=== PATIENT | male | born 1985 | race Caucasian/White ===

== ENCOUNTER 2016-11-01 11:26 | Emergency (ER) | payer OTHER ==
[~2016-11-01] VITALS: Ht 182.9 cm; Wt 86.2 kg
[~2016-11-01 11:26] MED LIST: Ambien PO; CLARITIN-D 121 EACH PO; ENDOCET 5-3251 EACH PO; IBUPROFEN800 MG PO; LEXAPRO10 MG PO; Levaquin PO; ROBITUSSIN AC,T10 ML PO; ZITHROMAX Z-PA250 MG PO; celeXA PO
[2016-11-01] MEDS ORDERED: LISINOPRIL20 MG PO (11:43)
[2016-11-01] MEDS ORDERED: GRALISE300 MG PO (11:43)
[2016-11-01] MEDS ORDERED: WELLBUTRIN75 MG PO (11:43)
[2016-11-01] MEDS ORDERED: MOTRIN800 MG PO (12:18)
[2016-11-01 12:34] VITALS: BP 115/75
== END 2016-11-01 12:35 | disposition home or self-care (01) ==
LOC: EME 11:26
DX: S60.221A Contusion of right hand, initial encounter (principal); W10.9XXA Fall (on) (from) unspecified stairs and steps, initial encounter; I10 Essential (primary) hypertension; F17.200 Nicotine dependence, unspecified, uncomplicated
CPT/HCPCS: 73130; 99281; 99283

== ENCOUNTER 2017-05-07 19:11 | Emergency (ER) | payer OTHER ==
[~2017-05-07] VITALS: Ht 182.9 cm; Wt 79.5 kg
[~2017-05-07 19:11] MED LIST changes: +GRALISE300 MG PO; +LISINOPRIL20 MG PO; +MOTRIN800 MG PO; +WELLBUTRIN75 MG PO
[2017-05-07] MEDS ORDERED: MEDROL DOSEPAK4 MG PO (22:46)
[2017-05-07 23:11] VITALS: BP 123/80
== END 2017-05-07 23:14 | disposition home or self-care (01) ==
LOC: EME 19:11
DX: S00.83XA Contusion of other part of head, initial encounter (principal); S20.211A Contusion of right front wall of thorax, initial encounter; Y04.8XXA Assault by other bodily force, initial encounter
CPT/HCPCS: 70360; 70450; 70486; 70498; 71101; 99281; 99284; J1100; J2270; J2405; J7030

== ENCOUNTER 2017-10-15 19:42 | Emergency (ER) | payer OTHER ==
[~2017-10-15] VITALS: Ht 182.9 cm; Wt 85.3 kg
[~2017-10-15 19:42] MED LIST changes: +MEDROL DOSEPAK4 MG PO
[2017-10-15] MEDS ORDERED: FLEXERIL10 MG PO (21:41)
[2017-10-15] MEDS ORDERED: NAPROSYN500 MG PO (21:41)
[2017-10-15 21:52] VITALS: BP 140/81
== END 2017-10-15 21:53 | disposition home or self-care (01) ==
LOC: EME → EDBD 19:42 → EME 19:42
DX: S16.1XXA Strain of muscle, fascia and tendon at neck level, initial encounter (principal); S39.012A Strain of muscle, fascia and tendon of lower back, initial encounter; R51 Headache; V49.40XA Driver injured in collision with unspecified motor vehicles in traffic accident, initial encounter; Y92.410 Unspecified street and highway as the place of occurrence of the external cause; F17.200 Nicotine dependence, unspecified, uncomplicated
CPT/HCPCS: 72040; 72100; 99281; 99283